=== PATIENT | male | born 1965 | race Caucasian/White ===

== ENCOUNTER 2016-10-05 15:18 | Observation (INO) | payer SELFPAY ==
[2016-10-05] MEDS ORDERED: Ticagrelor 90 MG Tab PO ONE (15:39)
[2016-10-05] MEDS ORDERED: Sodium Chloride 0.9% 10 ML Syringe FLUSH PRN ×2 (15:39→17:51)
[2016-10-05] MEDS ORDERED: Famotidine 20 MG/2 ML SDV IVPUSH ONE (15:39)
[2016-10-05] MEDS ORDERED: Metoprolol Tartrate 5 MG/5 ML SDV IVPUSH ONE (15:39)
[2016-10-05] MEDS ORDERED: Aspirin 81 MG Tab.Chew CHEW ONE (15:39)
--- NOTE | 2016-10-05 15:39 | EDM.PDOC ---
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 unspecified type Qualified Code(s): G47.30 - Sleep apnea , unspecified (11) Tobacco abuse counseling SNOMED Code(s): 925710169, [id number], [id number] Code(s): Z71.6 - TOBACCO ABUSE COUNSELING Status: Chronic Priority: Medium Current Visit: Yes Annotation/Comment:: Tobacco cessation information at discharge - Problem List Review Problem List Initiated/Reviewed/Updated: Yes - My Orders Last 24 Hours: My Active Orders 10/05/16 15:39 Cardiac Monitoring [RC] . DIRECTED EKG Documentation Completion [RC] ASDIRECTED Oxygen Therapy, ED [RC] CONTINUOUS Peripheral IV Care [RC] . DIRECTED Pulse Oximetry [RC] CONTINUOUS Up With Assistance [RC] PFP Vital Signs [RC] PFP Chest 1V Frontal [CR] Stat Sodium Chloride 0.9% [Saline Flush] 10 ml FLUSH ASDIRECTED PRN Obtain Past Medical Record [OM.PC] Urgent Peripheral IV Insertion Adult [OM.PC] Stat Resuscitation Status Stat 10/05/16 Breakfast Nothing per Oral Now Diet [DIET] - Assessment/Plan Admission H&P: Please use this note as an admission H&P Last 24 Hours: My Active Orders 10/05/16 15:39 Cardiac Monitoring [RC] . DIRECTED EKG Documentation Completion [RC] ASDIRECTED Oxygen Therapy, ED [RC] CONTINUOUS Peripheral IV Care [RC] . DIRECTED Pulse Oximetry [RC] CONTINUOUS Up With Assistance [RC] PFP Vital Signs [RC] PFP Chest 1V Frontal [CR] Stat Sodium Chloride 0.9% [Saline Flush] 10 ml FLUSH ASDIRECTED PRN Obtain Past Medical Record [OM.PC] Urgent Peripheral IV Insertion Adult [OM.PC] Stat Resuscitation Status Stat 10/05/16 Breakfast Nothing per Oral Now Diet [DIET] Assessment:: As above Plan: As above. Extensive precautions were given to the patient, who is in agreement with the treatment plan. The patient's condition is stable enough for observation status and general supervision.
[2016-10-05] MEDS ORDERED: Enalaprilat 1.25 MG/ML SDV IVPUSH ONE (16:40)
[2016-10-05 16:46] LABS: CHLORIDE,CL 103 mmol/L (98-107); SODIUM,NA 139 mmol/L (136-145)
[2016-10-05] MEDS ORDERED: Acetaminophen 325 MG Tab PO PRN (17:51)
[2016-10-05] MEDS ORDERED: Temazepam 15 MG Cap PO PRN ×2 (17:51→18:02)
[2016-10-05] MEDS: Magnesium Oxide 400 MG Tab PO SCH (18:08)
[2016-10-05] MEDS ORDERED: Lisinopril 10 MG Tab PO ONE (20:06)
[2016-10-06 07:54] LABS: CHLORIDE,CL 104 mmol/L (98-107); SODIUM,NA 139 mmol/L (136-145)
[2016-10-06] MEDS ORDERED: atorvaSTATin 40 MG Tab PO SCH (08:00)
[2016-10-06] MEDS ORDERED: Hydrochlorothiazide 25 MG Tab PO SCH (08:00)
[2016-10-06] MEDS ORDERED: Lisinopril 20 MG Tab PO SCH (08:00)
[2016-10-06] MEDS ORDERED: Timolol Maleate 0.25% Ophth Soln 5 ML Bottle EYERT SCH (08:00)
[2016-10-06] MEDS: Magnesium Oxide 400 MG Tab PO SCH (08:20)
--- NOTE | 2016-10-06 09:08 | PCM.DCSUM1 ---
Discharge Summary - Hospital Course HPI Initial Comments: See emergency room note/admission H&P Brief History: See emergency room note/admission H&P - Discharge Data Discharge Date: 10/06/16 Discharge Disposition: DC/Tfer to Acute Hospital 02 Condition: Good - Discharge Diagnosis/Problem(s) (1) Bradycardia SNOMED Code(s): 29824011 ICD Code: R00.1 - BRADYCARDIA, UNSPECIFIED Status: Acute Priority: High Current Visit: Yes Onset Date: 10/05/16 Problem Details: Note significant bradycardia during this hospitalization including long pauses with maximum pause of 4.09 seconds noted. Frequent heart rates in the low 20s with average heart rate in the 40s during the evening, including while the patient was awake. Note that the patient has not been taking his Timolol for his glaucoma for at least 3-4 weeks. Only low-dose beta lily therapy given in the emergency room as below with additional history of distant syncope as below. Telephone consultation at 08:[address] Regalado, deli worker at [facility] in [place], and Dr. Salamanca, hospitalist at [facility], who does agree to accept the patient for direct admission and subsequent cardiology consultation. They will continue to observe the patient's heart rhythm for now with possibility of pacemaker placement and/or event monitor on an outpatient basis depending on his clinical course. Ambulance transfer with community marketing coordinator accompaniment. Per the deli worker and the hospitalist the patient will be started back on his heart healthy diet, which he did tolerate well yesterday. (2) Fatigue SNOMED Code(s): 34732342 ICD Code: R53.83 - OTHER FATIGUE Status: Acute Priority: High Current Visit: Yes Onset Date: 10/05/16 Problem Details: As above. Nonspecific fatigue since yesterday morning with possible atypical cardiac type symptoms. Chest pain protocol was initiated upon patient's arrival to the emergency room. Note that low dose Lopressor at 2.5 mg IV was given in the emergency room as part of the chest pain protocol. Negative workup for acute UT including cardiac enzymes 3 and EKGs 2. Note previous history of recurrent syncopal episodes possibly secondary to previously suspected vasovagal disease, although bradycardia may have been an issue at that time. Consider echocardiogram, Cardiolite stress test, etc. with cardiology consultation in the accepting facility as above. Compliance with C-PAP, medical therapy, etc. discussed with finances apparently an issue. Patient was counseled on using health care social worker, his regular providers, etc. to discuss these issues. Qualifiers: Fatigue type: unspecified Qualified Code(s): R53.83 - Other fatigue (3) Hypertension SNOMED Code(s): 89436965 ICD Code: I10 - ESSENTIAL (PRIMARY) HYPERTENSION Status: Chronic Priority : Medium Current Visit: Yes Problem Details: Note medication noncompliance for quite some time secondary to finances. Continue to observe closely with blood pressure under excellent control prior to transfer. IV Lopressor and IV Vasotec were given in the emergency room as above with no other beta lily therapy during this observation. Patient was advised to decrease his caffeine intake and discontinue all energy drink use immediately Qualifiers: Hypertension type: essential hypertension Qualified Code(s): I10 - Essential (primary) hypertension (4) COPD (chronic obstructive pulmonary disease) SNOMED Code(s): 66019671 ICD Code: J44.9 - CHRONIC OBSTRUCTIVE PULMONARY DISEASE, UNSPECIFIED Status : Chronic Priority: Medium Current Visit: Yes Problem Details: COPD by chest x-ray with history of tobacco abuse as above. Consider PFTs once his cardiac status has been determined. Note resolution of mild polycythemia at discharge from initial emergency room evaluation Qualifiers: COPD type: emphysema Emphysema type: panlobular Qualified Code(s): J43.1 - Panlobular emphysema (5) Caries SNOMED Code(s): 61589940 ICD Code: K02.9 - DENTAL CARIES, UNSPECIFIED Status: Chronic Priority: Medium Current Visit: Yes Problem Details: Patient advised to follow-up with his dentist ARMANI after discharge (6) Hyperlipidemia SNOMED Code(s): 01886376 ICD Code: E78.5 - HYPERLIPIDEMIA, UNSPECIFIED Status: Chronic Priority: Medium Current Visit: Yes Problem Details: Fasting Lipid panel yesterday evening showed significant dyslipidemia significant medication and dietary noncompliance as above. Qualifiers: Hyperlipidemia type: mixed hyperlipidemia Qualified Code(s): E78.2 - Mixed hyperlipidemia (7) Hyperuricemia SNOMED Code(s): 73297364 ICD Code: E79.0 - HYPERURICEMIA W/O SIGNS OF INFLAM ARTHRIT AND TOPHACEOUS DIS Status: Acute Priority: Medium Current Visit: Yes Onset Date: Problem Details: Newly diagnosed. No previous history of gout attacks. Otherwise arthritis stable by patient history (8) Hypomagnesemia SNOMED Code(s): 257160512 ICD Code: E83.42 - HYPOMAGNESEMIA Status: Chronic Priority: Medium Current Visit: Yes Onset Date: 10/05/16 Problem Details: Initiated magnesium oxide therapy yesterday afternoon with close follow-up by his regular provider (9) Mixed anxiety depressive disorder SNOMED Code(s): 380932093 ICD Code: F41.8 - OTHER SPECIFIED ANXIETY DISORDERS Status: Chronic Priority: Medium Current Visit: Yes Problem Details: Patient admits to increased stressors recently, although he does not wish to discuss this at this time. Close follow-up by his regular provider recommended with the patient agreeing to this treatment plan. Financial issues as above. Emotional support provided (10) Peptic reflux disease SNOMED Code(s): 65996110 ICD Code: K21.9 - GASTRO-ESOPHAGEAL REFLUX DISEASE WITHOUT ESOPHAGITIS Status: Chronic Priority: Medium Current Visit: Yes Problem Details: Stable by patient history with high-dose IV Pepcid given as GI prophylaxis in the emergency room (11) Sleep apnea SNOMED Code(s): 06145363 ICD Code: G47.30 - SLEEP APNEA, UNSPECIFIED Status: Acute Priority: Medium Current Visit: Yes Problem Details: Patient refused using his CPAP yesterday evening despite my previous order to initiate this therapy. Patient has been long noncompliant with his CPAP with reinitiation of this therapy was again strongly advised. His sleep apnea may be a factor in his bradycardia per the deli worker. The patient assures me that he will have a friend bring his CPAP machine brought to the [facility] later today Qualifiers: Sleep apnea type: unspecified type Qualified Code(s): G47.30 - Sleep apnea , unspecified (12) Tobacco abuse counseling SNOMED Code(s): 386814620, 046767568, 975450357 ICD Code: Z71.6 - TOBACCO ABUSE COUNSELING Status: Chronic Priority: Medium Current Visit: Yes Problem Details: Tobacco cessation information at discharge (13) Glaucoma SNOMED Code(s): 48737513 ICD Code: H40.9 - UNSPECIFIED GLAUCOMA Status: Chronic Priority: Medium Current Visit: Yes Problem Details: As above. Patient will likely need to be changed from Timolol to another glaucoma medication secondary to his bradycardia Qualifiers: Glaucoma type: unspecified Laterality: bilateral Qualified Code(s): H40.9 - Unspecified glaucoma (14) Hypoalbuminemia SNOMED Code(s): 710230287 ICD Code: E88.09 - OTH DISORDERS OF PLASMA-PROTEIN METABOLISM, NEC Status: Acute Priority: Medium Current Visit: Yes Onset Date: 10/06/16 Problem Details: Consider high-protein Glucerna supplements at snacks with weight loss in moderation advisable as above - Patient Summary/Data Operative Procedure(s) Performed: None Complications: None Consults: As above Labs Pending at D/C: None Recommended Follow-up Testing/Procedures: Cardiology consultation and workup as above Planned Operative Procedure(s) after DC: Possible pacemaker placement as above Hospital Course: The patient was admitted to observation status for observation of his fatigue and possible atypical anginal type symptoms with development of significant bradycardia without direct evidence of a complete heart block during this hospitalization as above. The patient denies any chest pain or other anginal- type symptoms, although his fatigue did persist at time of transfer. No complications including falls, etc. during this hospitalization with activity restrictions with ambulation with assist ordered. Negative workup for acute UT as above. The patient also denies any recent fever, cough, wheezing, dyspnea, etc., despite borderline leukocytosis at transfer. - Patient Instructions Diet: Heart Healthy Diet Activity: Bedrest, May Use Bathroom (With assist) Driving: Do Not Drive Showering/Bathing: No Showering (Until otherwise directed by accepting providers ) Notify Provider of: Fever, Increased Pain, Nausea and/or Vomiting Other/Special Instructions: 1. Ambulance transfer with community marketing coordinator accompaniment. 2. Strict compliance with all medical therapy, CPAP, etc. as discussed. 3. Have regular provider or accepting facility arrange health care social worker consultation for your financial problems with your medications. 4. Decrease caffeine intake and discontinue all energy drink use as discussed. 5. Discuss your current emotional status, stressors, etc. with your regular provider with possible medical therapy, counseling, etc. 6. Stop all tobacco use ARMANI as directed/per provided information and consider contacting [employer]uit [facility] , etc.. - Discharge Plan Home Medications: Home Meds Lisinopril/Hydrochlorothiazide [Lisinopril-Hctz 20-12.5 mg Tab] 1 tab PO DAILY 10/05/16 [History] atorvaSTATin [Lipitor] 40 mg PO DAILY 10/05/16 [History] Acetaminophen [Tylenol] 650 mg PO Q4H PRN #0 tablet 10/06/16 [Rx] Magnesium Oxide 400 mg PO DAILY tablet 10/06/16 [Rx] Sodium Chloride 0.9% [Saline Flush] 10 ml FLUSH ASDIRECTED PRN #0 syringe [Rx] Sodium Chloride 0.9% [Saline Flush] 10 ml FLUSH Q12HR PRN #0 syringe 10/06/16 [ Rx] Temazepam [Restoril] 15 mg PO DAILY@2000 PRN #0 cap 10/06/16 [Rx] Patient Handouts: Smoking Cessation, Tips for Success, Zaly-rx-Ghco Forms: ED Department Discharge, Interfacility Transfer EMTALA Referrals: Karli Carlisle PA-C [Primary Care Provider] - - Discharge Summary/Plan Comment DC Time >30 min.: Yes (Coordination of care) Discharge Summary/Plan Comment: As above. Extensive precautions were given to the patient, who is in agreement with the treatment plan. Ambulance transfer with community marketing coordinator accompaniment - General Info Date of Service: 10/06/16 Functional Status: Reports: pain controlled, tolerating diet, ambulating, urinating. Denies: new symptoms, incentive spirometry Numeric/FACES Score: 0 - Review of Systems General: Reports: Fatigue. Denies: Fever, Weakness, Malaise, Chills, Night Sweats, Appetite (Appetite good) HEENT: Reports: no symptoms. Denies: ear pain, eye pain, headaches, sinus congestion, sore throat, visual changes Pulmonary: Reports: no symptoms. Denies: shortness of breath, pleuritic chest pain, cough, hemoptysis, wheezing Cardiovascular: Reports: Edema (Stable dependent), Lightheadedness (Borderline at rest). Denies: Chest Pain, Palpitations, Dyspnea on Exertion, Orthopnea, PND Gastrointestinal: Reports: No symptoms. Denies: Abdominal pain, Constipation, Decreased appetite, Diarrhea, Difficulty swallowing, Flatus, Hematochezia, Melena, Nausea, Vomiting Genitourinary: Reports: no symptoms. Denies: dysuria, frequency, burning, pain , urgency, incontinence, hematuria, flank pain Musculoskeletal: Reports: no symptoms. Denies: neck pain, shoulder pain, arm pain, back pain, leg pain Skin: Reports: no symptoms. Denies: pallor, diaphoresis, bruising Neurological: Reports: Dizziness. Denies: Confusion, Headache, Numbness, Paresthesia, Seizure, Tingling, Weakness Psychiatric: Reports: depression (Stable by history), anxiety (Stable by history with increased stressors). Denies: confusion, agitation, cravings, hallucinations, suicidal ideation, homicidal ideation - Patient Data Vitals - Most Recent: Last Vital Signs Temp 36.7 C 10/06/16 04:00 Pulse 60 10/06/16 06:02 Resp 16 10/06/16 06:02 BP 106/53 L 10/06/16 08:21 Pulse Ox 98 10/06/16 06:02 Vital Signs (72 hours) 10/05/16 10/05/16 10/05/16 15:19 15:34 15:49 Temperature [ 36.9 C Oral] Pulse, Peripheral Pulse, 69 67 65 Peripheral [ Right Pulse Oximetry] Respiratory 18 15 15 Rate Blood Pressure Blood Pressure 163/96 H 169/95 H 164/96 H [Right Upper Arm] O2 Sat by Pulse 93 L 95 95 Oximetry 10/05/16 10/05/16 10/05/16 16:06 16:12 16:19 Temperature [ Oral] Pulse, 68 Peripheral Pulse, 68 65 Peripheral [ Right Pulse Oximetry] Respiratory 14 17 Rate Blood Pressure 165/95 H Blood Pressure 165/95 H 163/85 H [Right Upper Arm] O2 Sat by Pulse 96 100 Oximetry 10/05/16 10/05/16 10/05/16 16:34 16:44 16:55 Temperature [ Oral] Pulse, Peripheral Pulse, 65 61 Peripheral [ Right Pulse Oximetry] Respiratory 17 15 Rate Blood Pressure 172/105 H Blood Pressure 172/105 H 175/94 H [Right Upper Arm] O2 Sat by Pulse 100 100 Oximetry 10/05/16 10/05/16 10/05/16 17:21 17:51 19:51 Temperature [ 36.9 C 36.9 C Oral] Pulse, Peripheral Pulse, 62 62 58 L Peripheral [ Right Pulse Oximetry] Respiratory 17 18 16 Rate Blood Pressure Blood Pressure 152/95 H 152/95 H 154/100 H [Right Upper Arm] O2 Sat by Pulse 100 100 97 Oximetry 10/05/16 10/05/16 10/05/16 20:41 21:00 23:51 Temperature [ 36.8 C Oral] Pulse, Peripheral Pulse, 63 62 Peripheral [ Right Pulse Oximetry] Respiratory 16 Rate Blood Pressure 154/100 H Blood Pressure 165/102 H 172/101 H [Right Upper Arm] O2 Sat by Pulse 97 98 Oximetry 10/06/16 10/06/16 10/06/16 04:00 06:02 08:21 Temperature [ 36.7 C Oral] Pulse, Peripheral Pulse, 52 L 60 Peripheral [ Right Pulse Oximetry] Respiratory 16 16 Rate Blood Pressure 106/53 L Blood Pressure 148/75 H 134/80 [Right Upper Arm] O2 Sat by Pulse 99 98 Oximetry Weight - Most Recent: 128.82 kg I&O - Last 24 hours: Intake & Output 10/05/16 10/06/16 10/06/16 22:59 06:59 14:59 Intake Total 240 Output Total 800 650 Balance -800 -410 Imaging Impressions - Last 24 hrs: awake overnight monitor showed heart rate in the mid to high 50s at discharge with frequent severe sinus bradycardia, including long pauses with frequent heart rates in the 20s to 40s this past evening. No other cardiac arrhythmia noted. Chest x-ray, portable, on 10/05/16 showed evidence of moderate COPD with probable pulmonary hypertension, however no evidence of pulmonary infiltrates, pneumothorax, cardiomegaly, CHF, etc. Lab Results - Last 24 hrs: Laboratory Results - last 24 hr 10/05/16 10/06/16 10/06/16 Range/Units 21:35 07:15 07:15 WBC 10.8 H (4.0-10.2) K/uL RBC 5.01 (4.33-5.41) M/uL Hgb 16.6 (13.1-16.8) g/dL Hct 48.4 (39.0-49.0) % MCV 96.6 (84.0-98.0) fL MCH 33.1 (28.2-33.3) pg MCHC 34.3 (31.7-36.0) g/dL RDW 12.6 (11.2-14.1) % Plt Count 168 (150-350) K/uL Neut % (Auto) 73.4 (45.0-80.0) % Lymph % (Auto) 18.0 (10.0-50.0) % Mercer % (Auto) 6.9 (2.0-14.0) % Eos % (Auto) 1.4 (0.0-5.0) % Baso % (Auto) 0.3 (0.0-2.0) % Neut # (Auto) 7.93 H (1.40-7.00) K/uL Lymph # (Auto) 1.94 (0.50-3.50) K/uL Mercer # (Auto) 0.74 (0.00-1.00) K/uL Eos # (Auto) 0.15 (0.00-0.50) K/uL Baso # (Auto) 0.03 (0.00-0.20) K/uL Sodium 139 (136-145) mmol/L Potassium 3.9 (3.5-5.1) mmol/L Chloride 104 (98-107) mmol/L Carbon Dioxide 29.3 (21.0-32.0) mmol/L BUN 8 (7-18) mg/dL Creatinine 0.79 (0.51-1.17) mg/dL Est Cr Clr Drug Dosing 126.42 mL/min Estimated GFR (MDRD) > 60 mL/min Glucose 98 (74-106) mg/dL Hemoglobin A1c (4.3-5.7) % Calcium 8.3 L (8.5-10.1) mg/dL Total Bilirubin 0.5 (0.2-1.0) mg/dL AST 21 (15-37) U/L ALT 29 (12-78) U/L Alkaline Phosphatase 77 (46-116) IU/L Creatine Kinase 60 58 (26-308) U/L Creatine Kinase Index 0.3 0.3 (0.0-2.5) % CK-MB (CK-2) 0.20 0.20 (0.00-3.60) ng/mL Troponin I 0.006 0.003 (0.000-0.056) ng/mL Total Protein 6.5 (6.4-8.2) g/dL Albumin 3.1 L (3.4-5.0) g/dL Triglycerides 398 H (30-150) mg/dL Cholesterol 197 (100-200) mg/dL LDL Cholesterol, Calc 84 (0-100) mg/dL HDL Cholesterol 33 L (40-60) mg/dL 10/06/16 Range/Units 07:15 WBC (4.0-10.2) K/uL RBC (4.33-5.41) M/uL Hgb (13.1-16.8) g/dL Hct (39.0-49.0) % MCV (84.0-98.0) fL MCH (28.2-33.3) pg MCHC (31.7-36.0) g/dL RDW (11.2-14.1) % Plt Count (150-350) K/uL Neut % (Auto) (45.0-80.0) % Lymph % (Auto) (10.0-50.0) % Mercer % (Auto) (2.0-14.0) % Eos % (Auto) (0.0-5.0) % Baso % (Auto) (0.0-2.0) % Neut # (Auto) (1.40-7.00) K/uL Lymph # (Auto) (0.50-3.50) K/uL Mercer # (Auto) (0.00-1.00) K/uL Eos # (Auto) (0.00-0.50) K/uL Baso # (Auto) (0.00-0.20) K/uL Sodium (136-145) mmol/L Potassium (3.5-5.1) mmol/L Chloride (98-107) mmol/L Carbon Dioxide (21.0-32.0) mmol/L BUN (7-18) mg/dL Creatinine (0.51-1.17) mg/dL Est Cr Clr Drug Dosing mL/min Estimated GFR (MDRD) mL/min Glucose (74-106) mg/dL Hemoglobin A1c 5.5 (4.3-5.7) % Calcium (8.5-10.1) mg/dL Total Bilirubin (0.2-1.0) mg/dL AST (15-37) U/L ALT (12-78) U/L Alkaline Phosphatase (46-116) IU/L Creatine Kinase (26-308) U/L Creatine Kinase Index (0.0-2.5) % CK-MB (CK-2) (0.00-3.60) ng/mL Troponin I (0.000-0.056) ng/mL Total Protein (6.4-8.2) g/dL Albumin (3.4-5.0) g/dL Triglycerides (30-150) mg/dL Cholesterol (100-200) mg/dL LDL Cholesterol, Calc (0-100) mg/dL HDL Cholesterol (40-60) mg/dL Laboratory Tests 10/05/16 10/05/16 10/05/16 Range/Units 16:00 16:00 16:00 WBC 8.5 (4.0-10.2) K/uL RBC 5.21 (4.33-5.41) M/uL Hgb 17.3 H (13.1-16.8) g/dL Hct 49.7 H (39.0-49.0) % MCV 95.4 (84.0-98.0) fL MCH 33.2 (28.2-33.3) pg MCHC 34.8 (31.7-36.0) g/dL RDW 12.5 (11.2-14.1) % Plt Count 165 (150-350) K/uL Neut % (Auto) 68.5 (45.0-80.0) % Lymph % (Auto) 23.4 (10.0-50.0) % Mercer % (Auto) 6.3 (2.0-14.0) % Eos % (Auto) 1.3 (0.0-5.0) % Baso % (Auto) 0.5 (0.0-2.0) % Neut # (Auto) 5.79 (1.40-7.00) K/uL Lymph # (Auto) 1.98 (0.50-3.50) K/uL Mercer # (Auto) 0.53 (0.00-1.00) K/uL Eos # (Auto) 0.11 (0.00-0.50) K/uL Baso # (Auto) 0.04 (0.00-0.20) K/uL PT 10.7 (9.8-11.7) SEC INR 1.0 APTT 24.4 (23.5-30.0) SEC D-Dimer, Quantitative < 100 (0-400) ng/mL Sodium (136-145) mmol/L Potassium (3.5-5.1) mmol/L Chloride (98-107) mmol/L Carbon Dioxide (21.0-32.0) mmol/L BUN (7-18) mg/dL Creatinine (0.51-1.17) mg/dL Est Cr Clr Drug Dosing Estimated GFR (MDRD) mL/min Glucose (74-106) mg/dL Hemoglobin A1c (4.3-5.7) % Lactic Acid (0.4-2.0) mmol/L Uric Acid (2.6-7.2) mg/dL Calcium (8.5-10.1) mg/dL Magnesium (1.8-2.4) mg/dL Total Bilirubin (0.2-1.0) mg/dL AST (15-37) U/L ALT (12-78) U/L Alkaline Phosphatase (46-116) IU/L Creatine Kinase (26-308) U/L Creatine Kinase Index (0.0-2.5) % CK-MB (CK-2) (0.00-3.60) ng/mL Troponin I (0.000-0.056) ng/mL Urp-U-Uqssbtfllbv Pept (0-125) pg/mL Total Protein (6.4-8.2) g/dL Albumin (3.4-5.0) g/dL Triglycerides (30-150) mg/dL Cholesterol (100-200) mg/dL LDL Cholesterol, Calc (0-100) mg/dL HDL Cholesterol (40-60) mg/dL TSH, Ultra Sensitive (0.358-3.740) mIU/mL 10/05/16 10/05/16 10/05/16 Range/Units 16:00 16:00 21:35 WBC (4.0-10.2) K/uL RBC (4.33-5.41) M/uL Hgb (13.1-16.8) g/dL Hct (39.0-49.0) % MCV (84.0-98.0) fL MCH (28.2-33.3) pg MCHC (31.7-36.0) g/dL RDW (11.2-14.1) % Plt Count (150-350) K/uL Neut % (Auto) (45.0-80.0) % Lymph % (Auto) (10.0-50.0) % Mercer % (Auto) (2.0-14.0) % Eos % (Auto) (0.0-5.0) % Baso % (Auto) (0.0-2.0) % Neut # (Auto) (1.40-7.00) K/uL Lymph # (Auto) (0.50-3.50) K/uL Mercer # (Auto) (0.00-1.00) K/uL Eos # (Auto) (0.00-0.50) K/uL Baso # (Auto) (0.00-0.20) K/uL PT (9.8-11.7) SEC INR APTT (23.5-30.0) SEC D-Dimer, Quantitative (0-400) ng/mL Sodium 139 (136-145) mmol/L Potassium 3.9 (3.5-5.1) mmol/L Chloride 103 (98-107) mmol/L Carbon Dioxide 29.1 (21.0-32.0) mmol/L BUN 7 (7-18) mg/dL Creatinine 0.79 (0.51-1.17) mg/dL Est Cr Clr Drug Dosing TNP Estimated GFR (MDRD) > 60 mL/min Glucose 101 (74-106) mg/dL Hemoglobin A1c (4.3-5.7) % Lactic Acid 0.9 (0.4-2.0) mmol/L Uric Acid 8.1 H (2.6-7.2) mg/dL Calcium 8.8 (8.5-10.1) mg/dL Magnesium 1.7 L (1.8-2.4) mg/dL Total Bilirubin 0.4 (0.2-1.0) mg/dL AST 22 (15-37) U/L ALT 31 (12-78) U/L Alkaline Phosphatase 84 (46-116) IU/L Creatine Kinase 68 60 (26-308) U/L Creatine Kinase Index 0.6 0.3 (0.0-2.5) % CK-MB (CK-2) 0.40 0.20 (0.00-3.60) ng/mL Troponin I 0.000 0.006 (0.000-0.056) ng/mL Qnr-Q-Qfwnsvhzxjn Pept 72 (0-125) pg/mL Total Protein 6.9 (6.4-8.2) g/dL Albumin 3.4 (3.4-5.0) g/dL Triglycerides 398 H (30-150) mg/dL Cholesterol 197 (100-200) mg/dL LDL Cholesterol, Calc 84 (0-100) mg/dL HDL Cholesterol 33 L (40-60) mg/dL TSH, Ultra Sensitive 1.682 (0.358-3.740) mIU/mL 10/06/16 10/06/16 10/06/16 Range/Units 07:15 07:15 07:15 WBC 10.8 H (4.0-10.2) K/uL RBC 5.01 (4.33-5.41) M/uL Hgb 16.6 (13.1-16.8) g/dL Hct 48.4 (39.0-49.0) % MCV 96.6 (84.0-98.0) fL MCH 33.1 (28.2-33.3) pg MCHC 34.3 (31.7-36.0) g/dL RDW 12.6 (11.2-14.1) % Plt Count 168 (150-350) K/uL Neut % (Auto) 73.4 (45.0-80.0) % Lymph % (Auto) 18.0 (10.0-50.0) % Mercer % (Auto) 6.9 (2.0-14.0) % Eos % (Auto) 1.4 (0.0-5.0) % Baso % (Auto) 0.3 (0.0-2.0) % Neut # (Auto) 7.93 H (1.40-7.00) K/uL Lymph # (Auto) 1.94 (0.50-3.50) K/uL Mercer # (Auto) 0.74 (0.00-1.00) K/uL Eos # (Auto) 0.15 (0.00-0.50) K/uL Baso # (Auto) 0.03 (0.00-0.20) K/uL PT (9.8-11.7) SEC INR APTT (23.5-30.0) SEC D-Dimer, Quantitative (0-400) ng/mL Sodium 139 (136-145) mmol/L Potassium 3.9 (3.5-5.1) mmol/L Chloride 104 (98-107) mmol/L Carbon Dioxide 29.3 (21.0-32.0) mmol/L BUN 8 (7-18) mg/dL Creatinine 0.79 (0.51-1.17) mg/dL Est Cr Clr Drug Dosing 126.42 Estimated GFR (MDRD) > 60 mL/min Glucose 98 (74-106) mg/dL Hemoglobin A1c 5.5 (4.3-5.7) % Lactic Acid (0.4-2.0) mmol/L Uric Acid (2.6-7.2) mg/dL Calcium 8.3 L (8.5-10.1) mg/dL Magnesium (1.8-2.4) mg/dL Total Bilirubin 0.5 (0.2-1.0) mg/dL AST 21 (15-37) U/L ALT 29 (12-78) U/L Alkaline Phosphatase 77 (46-116) IU/L Creatine Kinase 58 (26-308) U/L Creatine Kinase Index 0.3 (0.0-2.5) % CK-MB (CK-2) 0.20 (0.00-3.60) ng/mL Troponin I 0.003 (0.000-0.056) ng/mL Wsp-K-Ycyrfpmgqyf Pept (0-125) pg/mL Total Protein 6.5 (6.4-8.2) g/dL Albumin 3.1 L (3.4-5.0) g/dL Triglycerides (30-150) mg/dL Cholesterol (100-200) mg/dL LDL Cholesterol, Calc (0-100) mg/dL HDL Cholesterol (40-60) mg/dL TSH, Ultra Sensitive (0.358-3.740) mIU/mL MARIELENA Results - Last 24 hrs: None Med Orders - Current: Current Medications Acetaminophen (Tylenol) 650 mg PO Q4H PRN PRN Reason: Pain Atorvastatin Calcium (Lipitor) 40 mg PO DAILY [facility] Last Admin: 10/06/16 08:20 Dose: 40 mg Hydrochlorothiazide (Hydrochlorothiazide) 12.5 mg PO DAILY [facility] Last Admin: 10/06/16 08:20 Dose: 12.5 mg Lisinopril (Prinivil) 20 mg PO DAILY [facility] Last Admin: 10/06/16 08:21 Dose: 20 mg Magnesium Oxide (Magnesium Oxide) 400 mg PO DAILY [facility] Last Admin: 10/06/16 08:20 Dose: 400 mg Sodium Chloride (Saline Flush) 10 ml FLUSH ASDIRECTED PRN PRN Reason: Keep Vein Open Sodium Chloride (Saline Flush) 10 ml FLUSH Q12HR PRN PRN Reason: Keep Vein Open Temazepam (Restoril) 15 mg PO DAILY@2000 PRN PRN Reason: Insomnia Last Admin: 10/05/16 22:56 Dose: 15 mg Discontinued Medications Aspirin (Aspirin) 324 mg CHEW ONETIME ONE Stop: 10/05/16 15:40 Last Admin: 10/05/16 16:09 Dose: 324 mg Enalaprilat (Vasotec Iv) 1.25 mg IVPUSH ONETIME ONE Stop: 10/05/16 16:41 Last Admin: 10/05/16 16:44 Dose: 1.25 mg Famotidine (Pepcid) 40 mg IVPUSH ONETIME ONE Stop: 10/05/16 15:40 Last Admin: 10/05/16 16:10 Dose: 40 mg Lisinopril (Prinivil) 10 mg PO ONETIME ONE Stop: 10/05/16 20:07 Last Admin: 10/05/16 20:41 Dose: 10 mg Metoprolol Tartrate (Lopressor) 2.5 mg IVPUSH ONETIME ONE Stop: 10/05/16 15:40 Last Admin: 10/05/16 16:12 Dose: 2.5 mg Temazepam (Restoril) 15 mg PO 1999 PRN PRN Reason: Insomnia Ticagrelor (Brilinta) 180 mg PO ONETIME ONE Stop: 10/05/16 15:40 Last Admin: 10/05/16 16:09 Dose: 180 mg Timolol Maleate (Timoptic 0.25% Ophth Soln) 0 ml EYERT DAILY JESSICA - Exam Quality Assessment: Reports: supplemental oxygen, DVT prophylaxis. Denies: central line/PICC, urine catheter, skin breakdown, restraints General: Reports: alert, oriented, cooperative, no acute distress HEENT: Reports: Pupils equal, Pupils reactive, EOMI, Mucous membr. moist/pink Neck: Reports: supple, trachea midline, no JVD, no thyromegaly, +2 carotid pulse wo bruit. Denies: lymphadenopathy Lungs: Reports: Clear to auscultation, Normal respiratory effort. Denies: Rub Cardiovascular: Reports: Regular Rhythm, No Murmurs, Bradycardia (Moderate). Denies: Murmurs, Gallops, Rubs Abdomen: Reports: bowel sounds present, soft, no tenderness, no distension, other (Obese). Denies: guarding, CVA tenderness (Male) Exam: Deferred Rectal (Males) Exam: Deferred Back Exam: Reports: Normal Inspection, Full Range of Motion. Denies: CVA Tenderness (L), CVA Tenderness (R), Muscle Spasm Extremities: Reports: normal pulses, no tenderness/swelling, no cyanosis, no calf tenderness, edema (Trace to +1 bilateral pedal/pretibial edema, negative Homans sign) Skin: Reports: warm, dry, intact. Denies: ecchymosis Neurological: Reports: no new focal deficit, other (No clinical orthostasis) Psy/Mental Status: Reports: anxious (Moderate), depressed (Mild to moderate with adequate eye contact). Denies: agitated, suicidal ideation, homicidal ideation, hallucinations, withdrawal symptoms EKG INTERPRETATION EKG Date: 10/06/16 Time: 07:28 Rhythm: Other (Sinus bradycardia) Rate (Beats/Min): 58 [place]: Normal P-Wave: Enlarged (Moderate diffuse biphasic P waves with pulmonary hypertension by EKG) QRS: Wide (QRS interval of 0.10 seconds representing repolarization changes with T-wave inversion in lead V1) ST-T: Normal QT: Normal DC/PQ Interval: 0.17 seconds Comparison: No Change (Last EKG on 10/05/16) EKG Interpretation Comments: 1. No acute ischemic changes 2. Sinus bradycardia 3. Pulmonary hypertension by EKG 4. Probable left atrial enlargement *Q Meaningful Use (DIS) - VTE *Q VTE Criteria *Q: - Stroke *Q Stroke Criteria *Q: - AMI *Q AMI Criteria *Q:
[2016-10-06 09:54] VITALS: BP 148/85
== END 2016-10-06 10:05 ==
LOC: LL.ED 15:18 → LL.MS 17:01
PROVIDERS: ADMIT Family Medicine; ATTEND Family Medicine
DX: R00.1 Bradycardia, unspecified (principal); R53.83 Other fatigue; I10 Essential (primary) hypertension; J44.9 Chronic obstructive pulmonary disease, unspecified; K02.9 Dental caries, unspecified; E78.2 Mixed hyperlipidemia; E79.0 Hyperuricemia without signs of inflammatory arthritis and tophaceous disease; E83.42 Hypomagnesemia; F41.8 Other specified anxiety disorders; K21.9 Gastro-esophageal reflux disease without esophagitis; G47.30 Sleep apnea, unspecified; Z71.6 Tobacco abuse counseling; H40.9 Unspecified glaucoma; E88.09 Other disorders of plasma-protein metabolism, not elsewhere classified; Z79.899 Other long term (current) drug therapy
CPT/HCPCS: 36415; 71010; 80053; 80061; 82550; 82553; 83036; 83605; 83735; 83880; 84443; 84484; 84550; 85025; 85379; 85610; 85730; 93005; 96374; 96375; 99285; A9270; 99217; 99220; G0378; J3490; S0028

== ENCOUNTER 2024-07-12 17:36 | Inpatient (IN) | payer MEDICAID ==
[2024-07-12 17:55] LABS: BASOPHILS ABSOLUTE AUTO 0.03 K/uL (0.00-0.20); BASOPHILS PERCENT AUTO 0.4 % (0.0-2.0); EOSINOPHILS ABSOLUTE AUTO 0.08 K/uL (0.00-0.50); EOSINOPHILS PERCENT AUTO 1.1 % (0.0-5.0); HEMOGLOBIN 16.5 g/dL (13.1-16.8); IMMATURE GRAN ABSOLUTE AUTO 0.01 10^3/uL (0.00-0.04); IMMATURE GRAN PERCENT AUTO 0.1 % (0.0-0.4); LYMPHOCYTES ABSOLUTE AUTO 1.31 K/uL (0.50-3.50); LYMPHOCYTES PERCENT AUTO 18.2 % (10.0-50.0); MEAN CORPUSCULAR HEMOGLOBIN 31.3 pg (28.2-33.3); MEAN CORPUSCULAR HGB CONC 33.7 g/dL (31.7-36.0); MONOCYTES ABSOLUTE AUTO 0.42 K/uL (0.00-1.00); MONOCYTES PERCENT AUTO 5.8 % (2.0-14.0); NEUTROPHILS ABSOLUTE AUTO 5.34 K/uL (1.40-7.00); NEUTROPHILS PERCENT AUTO 74.4 % (45.0-80.0); PLATELET COUNT,PLT 174 K/uL (150-350); RED BLOOD CELL COUNT 5.27 M/uL (4.33-5.41); RED CELL DISTRIBUTION WIDTH 12.6 % (11.2-14.1); WHITE BLOOD CELL COUNT,WBC 7.2 K/uL (4.0-10.2)
[2024-07-12 18:15] LABS: ALANINE AMINOTRANSFERASE,ALT 14 U/L (12-78); ALBUMIN 3.5 g/dL (3.4-5.0); ALKALINE PHOSPHATASE 98 IU/L (46-116); ANION GAP 4.9 meq/L (7-15); ASPARTATE AMNIOTRANSFERASE,AST 14 U/L (15-37); BILIRUBIN TOTAL 0.6 mg/dL (0.2-1.0); BLOOD UREA NITROGEN,BUN 13 mg/dL (7-18); CALCIUM 9.1 mg/dL (8.5-10.1); CARBON DIOXIDE,CO2 30.1 mmol/L (21.0-32.0); CHLORIDE,CL 103 mmol/L (98-107); CREATININE 0.74 mg/dL (0.51-1.17); GLUCOSE RANDOM 114 mg/dL (70-99); MAGNESIUM 1.8 mg/dL (1.8-2.4); POTASSIUM,K 4.2 mmol/L (3.5-5.1); PROTEIN TOTAL,TP 6.7 g/dL (6.4-8.2); SODIUM,NA 138 mmol/L (136-145)
[2024-07-12 18:17] LABS: ESTIMATED GFR 105 mL/min (>=60)
[2024-07-12] MEDS ORDERED: Ondansetron 4 MG/2 ML SDV IVPUSH PRN (19:31)
[2024-07-12] MEDS ORDERED: Ibuprofen 400 MG Tab PO PRN (19:31)
[2024-07-12] MEDS ORDERED: Acetaminophen 325 MG Tab PO PRN (19:31)
[2024-07-12] MEDS: traZODone 50 MG Tab PO SCH (20:09)
[2024-07-12] MEDS: Sodium Chloride 0.9% 1,000 ML IV ONE (20:09)
[2024-07-12] MEDS: QUEtiapine 25 MG Tab PO SCH (20:09)
[2024-07-12] MEDS: Sodium Chloride 0.9% 10 ML Syringe FLUSH PRN (20:09)
[2024-07-12] MEDS: Sodium Chloride 0.9% 1,000 ML IV SCH (22:25)
[2024-07-13 08:39] LABS: BASOPHILS ABSOLUTE AUTO 0.02 K/uL (0.00-0.20); BASOPHILS PERCENT AUTO 0.4 % (0.0-2.0); EOSINOPHILS ABSOLUTE AUTO 0.14 K/uL (0.00-0.50); EOSINOPHILS PERCENT AUTO 2.7 % (0.0-5.0); HEMATOCRIT 43.5 % (39.0-49.0); HEMOGLOBIN 14.5 g/dL (13.1-16.8); LYMPHOCYTES ABSOLUTE AUTO 2.24 K/uL (0.50-3.50); LYMPHOCYTES PERCENT AUTO 43.6 % (10.0-50.0); MEAN CORPUSCULAR HGB CONC 33.3 g/dL (31.7-36.0); MEAN CORPUSCULAR VOLUME 93.1 fL (84.0-98.0); MONOCYTES ABSOLUTE AUTO 0.35 K/uL (0.00-1.00); MONOCYTES PERCENT AUTO 6.8 % (2.0-14.0); NEUTROPHILS ABSOLUTE AUTO 2.39 K/uL (1.40-7.00); NEUTROPHILS PERCENT AUTO 46.5 % (45.0-80.0); PLATELET COUNT,PLT 141 K/uL (150-350); RED BLOOD CELL COUNT 4.67 M/uL (4.33-5.41); RED CELL DISTRIBUTION WIDTH 12.8 % (11.2-14.1); WHITE BLOOD CELL COUNT,WBC 5.1 K/uL (4.0-10.2)
[2024-07-13] MEDS: atorvaSTATin 40 MG Tab PO SCH (08:39)
[2024-07-13] MEDS: Apixaban 5 MG Tab PO SCH (08:39)
[2024-07-13] MEDS: Citalopram 20 MG Tab PO SCH (08:39)
[2024-07-13] MEDS: AMANTADINE 100 MG PO SCH (08:43)
[2024-07-13 08:58] LABS: CALCIUM 8.5 mg/dL (8.5-10.1); CARBON DIOXIDE,CO2 33.3 mmol/L (21.0-32.0); CREATININE 0.74 mg/dL (0.51-1.17); EST CRCL DRUG DOSING (CG) 122.97 mL/min; POTASSIUM,K 4.1 mmol/L (3.5-5.1)
[2024-07-13 09:05] LABS: ANION GAP 5.8 meq/L (7-15)
[2024-07-13] MEDS: Loperamide 2 MG Tab PO ONE (17:34)
[2024-07-14 07:30] LABS: APPEARANCE,URINE CLEAR; BILIRUBIN,URINE NEGATIVE (NEGATIVE); COLOR,URINE YELLOW; GLUCOSE,URINE NEGATIVE (NEGATIVE); KETONES,URINE NEGATIVE (NEGATIVE); LEUKOCYTE ESTERASE,URINE NEGATIVE (NEGATIVE); NITRITE,URINE NEGATIVE (NEGATIVE); OCCULT BLOOD,URINE NEGATIVE (NEGATIVE); PROTEIN,URINE NEGATIVE (NEGATIVE); UROBILINOGEN,URINE 0.2 E.U./dL (0.2-1.0)
[2024-07-14 07:57] LABS: CALCIUM 8.4 mg/dL (8.5-10.1); CARBON DIOXIDE,CO2 29.8 mmol/L (21.0-32.0); CREATININE 0.68 mg/dL (0.51-1.17); EST CRCL DRUG DOSING (CG) 133.82 mL/min
[2024-07-14 08:56] LABS: ANION GAP 8.2 meq/L (7-15)
[2024-07-14 09:01] LABS: BASOPHILS ABSOLUTE AUTO 0.03 K/uL (0.00-0.20); BASOPHILS PERCENT AUTO 0.6 % (0.0-2.0); EOSINOPHILS ABSOLUTE AUTO 0.09 K/uL (0.00-0.50); EOSINOPHILS PERCENT AUTO 1.8 % (0.0-5.0); HEMATOCRIT 41.7 % (39.0-49.0); HEMOGLOBIN 14.4 g/dL (13.1-16.8); LYMPHOCYTES ABSOLUTE AUTO 2.25 K/uL (0.50-3.50); LYMPHOCYTES PERCENT AUTO 45.5 % (10.0-50.0); MEAN CORPUSCULAR HGB CONC 34.5 g/dL (31.7-36.0); MEAN CORPUSCULAR VOLUME 92.7 fL (84.0-98.0); MONOCYTES ABSOLUTE AUTO 0.32 K/uL (0.00-1.00); MONOCYTES PERCENT AUTO 6.5 % (2.0-14.0); NEUTROPHILS ABSOLUTE AUTO 2.25 K/uL (1.40-7.00); NEUTROPHILS PERCENT AUTO 45.6 % (45.0-80.0); PLATELET COUNT,PLT 140 K/uL (150-350); RED CELL DISTRIBUTION WIDTH 12.5 % (11.2-14.1); WHITE BLOOD CELL COUNT,WBC 4.9 K/uL (4.0-10.2)
[2024-07-14] MEDS: Nicotine 14 MG/24 Hr Patch TRDERM SCH (11:59)
[2024-07-17 07:33] VITALS: BP 122/65
[2024-07-17 07:46] LABS: BASOPHILS ABSOLUTE AUTO 0.03 K/uL (0.00-0.20); BASOPHILS PERCENT AUTO 0.6 % (0.0-2.0); EOSINOPHILS ABSOLUTE AUTO 0.11 K/uL (0.00-0.50); EOSINOPHILS PERCENT AUTO 2.3 % (0.0-5.0); HEMOGLOBIN 14.9 g/dL (13.1-16.8); LYMPHOCYTES ABSOLUTE AUTO 2.08 K/uL (0.50-3.50); LYMPHOCYTES PERCENT AUTO 42.6 % (10.0-50.0); MEAN CORPUSCULAR HEMOGLOBIN 31.6 pg (28.2-33.3); MEAN CORPUSCULAR HGB CONC 33.9 g/dL (31.7-36.0); MEAN CORPUSCULAR VOLUME 93.2 fL (84.0-98.0); MONOCYTES PERCENT AUTO 8.2 % (2.0-14.0); NEUTROPHILS ABSOLUTE AUTO 2.26 K/uL (1.40-7.00); NEUTROPHILS PERCENT AUTO 46.3 % (45.0-80.0); PLATELET COUNT,PLT 153 K/uL (150-350); RED BLOOD CELL COUNT 4.72 M/uL (4.33-5.41); RED CELL DISTRIBUTION WIDTH 12.8 % (11.2-14.1); WHITE BLOOD CELL COUNT,WBC 4.9 K/uL (4.0-10.2)
[2024-07-17 08:02] LABS: CALCIUM 8.7 mg/dL (8.5-10.1); CARBON DIOXIDE,CO2 33.6 mmol/L (21.0-32.0); CREATININE 0.7 mg/dL (0.51-1.17); POTASSIUM,K 4.2 mmol/L (3.5-5.1)
[2024-07-17 08:05] LABS: ANION GAP 4.6 meq/L (7-15)
[2024-07-17 09:49] VITALS: PULSE 65
== END 2024-07-17 14:14 | DRG 312 ==
LOC: LL.ED 17:36 → LL.MS 19:00
PROVIDERS: ADMIT Emergency Medicine; ATTEND Emergency Medicine
DX: I95.1 Orthostatic hypotension (principal); I69.354 Hemiplegia and hemiparesis following cerebral infarction affecting left non-dominant side; Z59.01 Sheltered homelessness; E86.0 Dehydration; H54.7 Unspecified visual loss; H40.9 Unspecified glaucoma; H26.9 Unspecified cataract; E78.00 Pure hypercholesterolemia, unspecified; I10 Essential (primary) hypertension; G47.30 Sleep apnea, unspecified; K21.9 Gastro-esophageal reflux disease without esophagitis; M19.90 Unspecified osteoarthritis, unspecified site; G89.29 Other chronic pain; E66.9 Obesity, unspecified; F17.210 Nicotine dependence, cigarettes, uncomplicated; F41.8 Other specified anxiety disorders; G47.00 Insomnia, unspecified; G90.1 Familial dysautonomia [Riley-Day]; Z68.27 Body mass index [BMI] 27.0-27.9, adult; Z98.49 Cataract extraction status, unspecified eye; Z98.890 Other specified postprocedural states; Z79.1 Long term (current) use of non-steroidal anti-inflammatories (NSAID); Z79.899 Other long term (current) drug therapy; Z86.711 Personal history of pulmonary embolism; Z91.199 Patient's noncompliance with other medical treatment and regimen due to unspecified reason; Z87.81 Personal history of (healed) traumatic fracture; Z79.02 Long term (current) use of antithrombotics/antiplatelets; Z90.49 Acquired absence of other specified parts of digestive tract
CPT/HCPCS: 36415; 80048; 80053; 81003; 83735; 85025; 97110-GP; 97161-GP; 97165-GO; 97530-GP; 99223; 99232; 99233; 99239; 99285; A9270-GY; J7030; U0002